=== PATIENT | female | born 1970 | race Caucasian/White ===

== ENCOUNTER 2017-11-12 12:02 | Emergency (ER) | payer OTHER ==
[~2017-11-12] VITALS: Ht 160 cm; Wt 59.0 kg
[2017-11-12] MEDS ORDERED: FLOVENT HFA10.6 GM (13:21)
== END 2017-11-12 15:19 | disposition home or self-care (01) ==
LOC: ER 12:02
DX: E16.1 Other hypoglycemia (principal)

== ENCOUNTER → 2021-07-26 | Emergency (ER) | payer OTHER ==
[~2021-07-26] VITALS: Ht 160 cm; Wt 61.2 kg
[~2021-07-26] MED LIST: FLOVENT HFA10.6 GM
== END | disposition left against medical advice (07) ==
LOC: ER 02:30
DX: Z53.21 Procedure and treatment not carried out due to patient leaving prior to being seen by health care provider (principal)